=== PATIENT | male | born 1965 | race Native Hawaiian/Other Pacific Islander ===

== ENCOUNTER → 2017-05-18 22:35 | Outpatient (CLI) | payer BC, OTHER ==
[~2017-05-18 22:35] MED LIST: ASA LO-DOSE81 MG PO; BENICAR20 MG PO; METOPROLOL25 M1; PRAVACHOL20 MG PO; SERT50TA PO
== END | disposition short-term general hospital (02) ==
LOC: AMB 22:35
DX: M54.2 Cervicalgia (principal); M54.89 Other dorsalgia; V49.88XA Car occupant (driver) (passenger) injured in other specified transport accidents, initial encounter; Y92.488 Other paved roadways as the place of occurrence of the external cause
CPT/HCPCS: A0425; A0427

== ENCOUNTER 2017-05-18 22:36 | Emergency (ER) | payer BC, OTHER ==
[~2017-05-18] VITALS: Ht 188 cm; Wt 127.0 kg
[~2017-05-18 22:36] MED LIST changes: -METOPROLOL25 M1; -PRAVACHOL20 MG PO
[2017-05-18] MEDS ORDERED: METOPROLOL25 M1 (23:09)
[2017-05-18] MEDS ORDERED: PRAVACHOL20 MG PO (23:09)
[2017-05-19 00:19] VITALS: BP 135/81; TEMP 98.2
== END 2017-05-19 00:14 | disposition home or self-care (01) ==
LOC: ED 22:36
DX: S16.1XXA Strain of muscle, fascia and tendon at neck level, initial encounter (principal); S39.012A Strain of muscle, fascia and tendon of lower back, initial encounter; V43.52XA Car driver injured in collision with other type car in traffic accident, initial encounter
CPT/HCPCS: 96372; 99283; J1885

== ENCOUNTER 2017-05-24 15:58 | Outpatient (CLI) | payer BC, OTHER ==
[~2017-05-24 15:58] MED LIST changes: +METOPROLOL25 M1; +PRAVACHOL20 MG PO
== END 2017-05-24 21:24 | disposition home or self-care (01) ==
LOC: RAD 15:58
DX: R07.81 Pleurodynia (principal)